=== PATIENT | female | born 1980 | race Caucasian/White ===

== ENCOUNTER 2024-10-28 13:43 | Emergency (ER) | payer MEDICAID ==
[~2024-10-28] VITALS: Ht 162.6 cm; Wt 119.0 kg
[2024-10-28 13:55] VITALS: BP 148/80; PULSE 98; RESP 16; TEMP 98.5; O2SAT 100
[2024-10-28] MEDS ORDERED: DOXY100C43 PO (15:52)
== END 2024-10-28 16:05 | disposition home or self-care (01) ==
LOC: ER 13:44
DX: L05.91 Pilonidal cyst without abscess (principal)
CPT/HCPCS: 99283